=== PATIENT | female | born 1980 | race Caucasian/White ===

== ENCOUNTER 2017-09-27 13:17 | Emergency (ER) | payer OTHER | END 2017-09-27 13:48 | disposition home or self-care (01) | LOC: NAV ERS 13:17 | DX: M54.6 Pain in thoracic spine (principal); J45.909 Unspecified asthma, uncomplicated; E11.9 Type 2 diabetes mellitus without complications; E66.9 Obesity, unspecified; F41.9 Anxiety disorder, unspecified; F31.9 Bipolar disorder, unspecified; F17.210 Nicotine dependence, cigarettes, uncomplicated; Z79.899 Other long term (current) drug therapy | CPT/HCPCS: 99283 ==

== ENCOUNTER 2018-10-22 14:32 | Emergency (ER) | payer SELFPAY ==
[2018-10-22] MEDS ORDERED: predniSONE 20 MG TAB ONE (14:58)
[2018-10-22] MEDS ORDERED: Sodium Chloride For Inhalation 0.9% 3 ML NEB ONE (14:58)
[2018-10-22] MEDS ORDERED: Albuterol Sulfate 2.5 mg/0.5 ml Neb ONE (14:58)
== END 2018-10-22 15:45 | disposition home or self-care (01) ==
LOC: NAV ERS 14:32
DX: J45.901 Unspecified asthma with (acute) exacerbation (principal); F98.8 Other specified behavioral and emotional disorders with onset usually occurring in childhood and adolescence; F41.9 Anxiety disorder, unspecified; F17.210 Nicotine dependence, cigarettes, uncomplicated; Z79.899 Other long term (current) drug therapy
CPT/HCPCS: 94640; J7512; J7611; J7620

== ENCOUNTER 2018-12-10 09:59 | Emergency (ER) | payer SELFPAY ==
[2018-12-10] MEDS ORDERED: Sodium Chloride For Inhalation 0.9% 3 ML NEB ONE (10:09)
[2018-12-10] MEDS ORDERED: Albuterol Sulfate 2.5 mg/0.5 ml Neb ONE ×2 (10:09)
[2018-12-10] MEDS ORDERED: predniSONE 20 MG TAB ONE (10:15)
== END 2018-12-10 11:13 | disposition home or self-care (01) ==
LOC: NAV ERS 09:59
DX: J45.901 Unspecified asthma with (acute) exacerbation (principal); F41.9 Anxiety disorder, unspecified; F98.8 Other specified behavioral and emotional disorders with onset usually occurring in childhood and adolescence; Z79.51 Long term (current) use of inhaled steroids
CPT/HCPCS: 94640; J7512; J7611; J7620

== ENCOUNTER 2019-01-03 10:43 | Emergency (ER) | payer SELFPAY ==
[2019-01-03] MEDS ORDERED: predniSONE 20 MG TAB ONE (11:17)
== END 2019-01-03 11:50 | disposition home or self-care (01) ==
LOC: NAV ERS 10:43
DX: J45.901 Unspecified asthma with (acute) exacerbation (principal)
CPT/HCPCS: 94640; 94760; J7512; J7620

== ENCOUNTER 2020-01-27 13:17 | Emergency (ER) | payer SELFPAY ==
[2020-01-27] MEDS ORDERED: predniSONE 20 MG TAB ONE (13:44)
[2020-01-27] MEDS ORDERED: Ipratropium/Albuterol Sulfate 4 GM AER IH SCH (14:15)
== END 2020-01-27 14:18 | disposition home or self-care (01) ==
LOC: NAV ERS 13:17
DX: J45.901 Unspecified asthma with (acute) exacerbation (principal); I10 Essential (primary) hypertension; F41.9 Anxiety disorder, unspecified; F98.8 Other specified behavioral and emotional disorders with onset usually occurring in childhood and adolescence
CPT/HCPCS: 99284; J7512

== ENCOUNTER 2020-02-22 17:38 | Emergency (ER) | payer SELFPAY ==
[2020-02-22] MEDS ORDERED: Albuterol Sulfate 2.5 mg/0.5 ml Neb ONE (17:54)
[2020-02-22] MEDS ORDERED: predniSONE 20 MG TAB ONE (17:57)
--- NOTE | 2020-02-22 18:39 | RAD ---
Chest AP view INDICATION: 39-year-old female with dyspnea COMPARISON: November 06, 2018 FINDINGS: Lungs: The lungs are clear Cardiac silhouette: The cardiomediastinal silhouette appears within normal limits. Pulmonary vasculature: Normal Pleural spaces: No pleural effusion or pneumothorax is demonstrated. Upper abdomen: No abnormality seen. Osseous structures: No acute osseous abnormality. Additional findings: None. IMPRESSION: No acute cardiopulmonary abnormality.
== END 2020-02-22 18:25 | disposition home or self-care (01) ==
LOC: NAV ERS 17:38
DX: J45.901 Unspecified asthma with (acute) exacerbation (principal)
CPT/HCPCS: 71045; J7512; J7611

== ENCOUNTER 2021-08-01 14:13 | Emergency (ER) | payer OTHER ==
[2021-08-01] MEDS ORDERED: methylPREDNISolone Sod Succ/PF 125 MG/2 ML VIAL ONE (14:29)
== END 2021-08-01 14:57 | disposition home or self-care (01) ==
LOC: NAV ERS 14:13
DX: J45.901 Unspecified asthma with (acute) exacerbation (principal); Z79.899 Other long term (current) drug therapy
CPT/HCPCS: 94640; 96372; J2930; J7620